=== PATIENT | male | born 1970 | race African-American/Black ===

== ENCOUNTER 2017-06-21 15:55 | Inpatient (IN) | payer SELFPAY ==
[2017-06-21] MEDS ORDERED: ASPIRIN 81 MG TABLET, CHEWABLE PO ONE (16:09)
[2017-06-21] MEDS ORDERED: DILTIAZEM HCL INJ 25 MG/5 ML VIAL IV ONE (16:10)
[2017-06-21] MEDS ORDERED: DILTIAZEM HCL/D5W 125 MG/125 ML RTUINJ IV ONE (16:24)
[2017-06-21] MEDS ORDERED: DILTIAZEM HCL/D5W 125 ML IV PRN (16:26)
[2017-06-21 16:30] LABS: ABSOLUTE BASOPHILS # (AUTO) 0.1 10^3/uL (0.0-0.2); ABSOLUTE EOSINOPHILS # (AUTO) 0.3 10^3/uL (0.0-0.6); ABSOLUTE LYMPHOCYTES (AUTO) 3.1 10^3/uL (0.5-4.7); ABSOLUTE MONOCYTES (AUTO) 0.4 10^3/uL (0.1-1.4); ABSOLUTE NEUT (AUTO) 4.9 10^3/uL (1.7-8.2); BASOPHILS % (AUTO) 1.1 % (0-2); EOSINOPHILS % (AUTO) 2.9 % (0-6); HEMATOCRIT 40.1 % (37.9-51.0); HEMOGLOBIN 14.1 g/dL (13.5-17.0); HGB HCT DIFFERENCE 2.2; MEAN CORPUSCULAR HEMOGLOBIN 29.5 pg (27.0-33.4); MEAN CORPUSCULAR HGB CONC 35.2 g/dL (32.0-36.0); MEAN CORPUSCULAR VOLUME 84 fl (80-97); MONOCYTES % (AUTO) 4.9 % (3-13); RED BLOOD COUNT 4.79 10^6/uL (4.35-5.55); RED CELL DISTRIBUTION WIDTH 13.6 % (11.5-14.0); SEGMENTED NEUTROPHILS % (AUTO) 56.1 % (42-78); WHITE BLOOD COUNT 8.7 10^3/uL (4.0-10.5)
--- NOTE | 2017-06-21 16:31 | ER Document Report ---
ED Cardiac - General Chief Complaint: Shortness Of Breath Stated Complaint: SHORTNESS OF BREATH Time Seen by Provider: 06/21/17 16:09 Mode of Arrival: Ambulatory Information source: Patient TRAVEL OUTSIDE OF THE [place] 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 when he developed shortness of breath with heavy breathing prompting him to come to the nearest emergency room, patient has a history of type 1 diabetes but no history of any cardiac issues, no history of atrial fibrillation, he denies any recent illness or injury, no oxsk-ytg-elpyohr supplements or energy drinks, denies drug use, occasional alcohol user, he does not smoke - Related Data Allergies/Adverse Reactions: codeine Allergy (Verified 06/21/17 16:40) Past Medical History - General Information source: Patient - Social History Smoking Status: Never Smoker Family History: Reviewed & Not Pertinent Patient has suicidal ideation: No Patient has homicidal ideation: No Renal/ Medical History: Denies: Hx Peritoneal Dialysis Review of Systems - Review of Systems Constitutional: No symptoms reported EENT: No symptoms reported Cardiovascular: See HPI Respiratory: See HPI Gastrointestinal: No symptoms reported Genitourinary: No symptoms reported Male Genitourinary: No symptoms reported Musculoskeletal: No symptoms reported Skin: No symptoms reported Hematologic/Lymphatic: No symptoms reported Neurological/Psychological: No symptoms reported -: Yes All other systems reviewed and negative Physical Exam - Vital signs Vitals: Temp Pulse Resp BP Pulse Ox 97.4 F 140 H 23 H 109/72 99 06/21/17 16:03 06/21/17 16:03 06/21/17 16:03 06/21/17 16:03 06/21/17 16:03 Interpretation: Tachycardic - General General appearance: Alert In distress: Moderate - HEENT Head: Normocephalic, Atraumatic Eyes: Normal Eyelashes: Normal Pupils: PERRL Pharynx: Normal Neck: Normal - Respiratory Respiratory status: Tachypnea Chest status: Nontender Breath sounds: Normal Chest palpation: Normal - Cardiovascular Rhythm: Irregularly irregular, Tachycardia Murmur: No - Abdominal Inspection: Normal Distension: No distension Bowel sounds: Normal Tenderness: Nontender Organomegaly: No organomegaly - Back Back: Normal, Nontender - Extremities General upper extremity: Normal inspection General lower extremity: Normal inspection - Neurological Neuro grossly intact: Yes Cognition: Normal Orientation: AAOx4 Krissy Coma Scale Eye Opening: Spontaneous Krissy Coma Scale Verbal: Oriented Krissy Coma Scale Motor: Obeys Commands Sparkman Coma Scale Total: 15 - Psychological Associated symptoms: Normal affect, Normal mood - Skin Skin Temperature: Warm Skin Moisture: Dry Skin Color: Normal Course - Re-evaluation Re-evalutation: 06/21/17 17:09 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 Sanchez, patient's presentation, EKG findings and lab values were discussed, he recommends anticoagulation with Lovenox, admission, stat echocardiogram and he will consult to see patient 06/21/17 17:18 Patient was discussed with hospitalist, Dr. Molina to agrees to admit to the [facility] as an observation for further evaluation and treatment - Vital Signs Vital signs: Temp Pulse Resp BP Pulse Ox 97.4 F 140 H 20 108/71 99 06/21/17 16:03 06/21/17 16:03 06/21/17 17:01 06/21/17 17:01 06/21/17 17:01 - Laboratory Result Diagrams: 06/21/17 16:18 06/21/17 16:18 Laboratory results interpreted by me: 06/21/17 06/21/17 16:18 16:18 Sodium 132.9 L Creatinine 1.46 H Est GFR (Non-Af Amer) 52 L Glucose 395 H Creatine Kinase 1097 H CK-MB (CK-2) 14.60 H - Diagnostic Test Radiology reviewed: Image reviewed, Reports reviewed - EKG Interpretation by Me Rate: Tachycardia Rhythm: A.Fib - Transfer of Care Care transferred to following provider: Dr. Molina Critical Care Note - Critical Care Note Total time excluding time spent on procedures (mins): 60 Comments: Patient arrived to the emergency room tachypneic and tachycardic with EKG findings consistent with atrial fibrillation with RVR, requiring Cardizem bolus and eventual Cardizem drip, as well as observation admission to the hospitalist service for new onset atrial fibrillation Discharge - Discharge Clinical Impression: New onset atrial fibrillation Condition: Stable Disposition: ADMITTED OBSERVATION Admitting Provider: Hospitalist Unit Admitted: IMCU Referrals: STEFFEN KEMP DO [Primary Care Provider] - Follow up as needed
[2017-06-21 16:38] LABS: PROTHROMBIN TIME 11.8 SEC (11.4-15.4)
[2017-06-21 16:47] LABS: ALANINE AMINOTRANSFERASE 57 U/L (21-72); ALBUMIN 3.6 g/dL (3.5-5.0); ALKALINE PHOSPHATASE 121 U/L (38-126); ANION GAP 10 (5-19); ASPARTATE AMINO TRANSFERASE 45 U/L (17-59); BILIRUBIN,DIRECT 0.3 mg/dL (0.0-0.4); BILIRUBIN,TOTAL 0.6 mg/dL (0.2-1.3); BLOOD UREA NITROGEN 18 mg/dL (7-20); CALCIUM 9.2 mg/dL (8.4-10.2); CARBON DIOXIDE 24 mmol/L (22-30); CHLORIDE 99 mmol/L (98-107); CREATINE KINASE 1097 U/L (55-170); CREATININE RESULT 1.46 mg/dL (0.52-1.25); GLUCOSE 395 mg/dL (75-110); POTASSIUM 4.7 mmol/L (3.6-5.0); SODIUM 132.9 mmol/L (137-145); TOTAL PROTEIN 6.6 g/dL (6.3-8.2)
[2017-06-21 16:59] LABS: CREATINE KINASE MB 14.6 ng/mL (<4.55); TROPONIN I 0.017 ng/mL
--- NOTE | 2017-06-21 16:59 | RADIOLOGY REPORT (SQ) ---
EXAM DESCRIPTION: CHEST SINGLE VIEW COMPLETED DATE/TIME: 06/21/2017 4:36 pm REASON FOR STUDY: db COMPARISON: None. EXAM PARAMETERS: NUMBER OF VIEWS: One view. TECHNIQUE: Single frontal radiographic view of the chest acquired. RADIATION DOSE: NA LIMITATIONS: None. FINDINGS: LUNGS AND PLEURA: No opacities, masses or pneumothorax. No pleural effusion. MEDIASTINUM AND HILAR STRUCTURES: No masses. Contour normal. HEART AND VASCULAR STRUCTURES: Heart normal in size. Normal vasculature. BONES: No acute findings. HARDWARE: None in the chest. OTHER: No other significant finding. IMPRESSION: NO ACUTE RADIOGRAPHIC FINDING IN THE CHEST. TECHNICAL DOCUMENTATION: JOB ID: [id number]
[2017-06-21] MEDS ORDERED: NORMAL SALINE 1000 ML 1,000 ML IV PRN (17:00)
[2017-06-21] MEDS ORDERED: ENOXAPARIN SODIUM INJ 150 MG/1 ML DISP.SYRIN SUBCUT ONE (17:10)
[2017-06-21] MEDS ORDERED: ONDANSETRON 4 MG TAB.RAPDIS PO PRN (17:42)
[2017-06-21] MEDS ORDERED: ONDANSETRON HCL INJ/PF 4 MG/2 ML SDV IV PRN (17:42)
[2017-06-21] MEDS ORDERED: ACETAMINOPHEN 325 MG TABLET PO PRN (17:42)
[2017-06-21] MEDS ORDERED: DILTIAZEM HCL/D5W 125 MG/125 ML RTUINJ IV PRN (17:48)
[2017-06-21] MEDS ORDERED: DEXTROSE 40% GEL 15 GM TUBE PO PRN ×2 (17:49)
[2017-06-21] MEDS ORDERED: GLUCAGON,HUMAN RECOMB 1 MG INJ IM PRN (17:49)
[2017-06-21] MEDS ORDERED: DEXTROSE 50%-WATER 25 GM/50 ML DISP.SYRIN IV PRN ×2 (17:49)
--- NOTE | 2017-06-21 17:59 | PDOC H&P ---
History of Present Illness Admission Date/PCP: STEFFEN KEMP DO Patient complains of: Palpitations History of Present Illness: KI GARCIAS is a 46 year old male has a history of diabetes mellitus and had a cardiac catheterization was normal 25 years ago who presents with new onset atrial fibrillation. He was driving from [place] where he lives to [place] and began to experience chest palpitations. He felt slightly short of breath associated with this. He initially thought it was because he drank a cold beverage. The patient continued to have symptoms in spite of drinking a warm drink and decided to come to the emergency room. He was noted to have atrial fibrillation with a rapid ventricular rate. Patient denies having any pain. He denies any dyspnea on exertion. Denies any loss of consciousness. Denies any focal weakness or paresthesias. He denies ever having history of atrial fibrillation. Patient is diabetic and reports his blood sugars have been slightly elevated over the last several days. He denies any fevers or chills or cough. He is noted to have slightly elevated creatinine but has no history of renal failure. Past Medical History Cardiac Medical History: Reports: Hyperlipidema, Hypertension Pulmonary Medical History: Reports: None EENT Medical History: Reports: None Neurological Medical History: Reports: None Endocrine Medical History: Reports: Diabetes Mellitus Type 2 Renal/ Medical History: Reports: None Malignancy Medical History: Reports: None GI Medical History: Reports: Gastroesophageal Reflux Disease Musculoskeltal Medical History: Reports: None Skin Medical History: Reports: None Psychiatric Medical History: Reports: None Traumatic Medical History: Reports: None Hematology: Reports: None Infectious Medical History: Reports: None Past Surgical History Past Surgical History: Reports: Cardiac Catheterization - 25 years ago and was normal by the patient report Social History Smoking Status: Never Smoker Frequency of Alcohol Use: None Hx Recreational Drug Use: No Drugs: None Hx Prescription Drug Abuse: No - Advance Directive Resuscitation Status: Full Code Family History Family History: Father at age 50 from complications of alcohol use. Mother at age 32 from aneurysm. Parental Family History Reviewed: Yes Children Family History Reviewed: No Sibling(s) Family History Reviewed.: No Medication/Allergy Allergies/Adverse Reactions: codeine Allergy (Verified 06/21/17 16:40) Review of Systems Constitutional: ABSENT: chills, fever(s), headache(s), weight gain, weight loss Eyes: ABSENT: visual disturbances Ears: ABSENT: hearing changes Cardiovascular: PRESENT: as per HPI Respiratory: ABSENT: cough, hemoptysis Gastrointestinal: ABSENT: abdominal pain, constipation, diarrhea, hematemesis, hematochezia, nausea, vomiting Genitourinary: ABSENT: dysuria, hematuria Musculoskeletal: ABSENT: joint swelling Integumentary: ABSENT: rash, wounds Neurological: ABSENT: abnormal gait, abnormal speech, confusion, dizziness, focal weakness, syncope Endocrine: ABSENT: cold intolerance, heat intolerance, polydipsia, polyuria Hematologic/Lymphatic: ABSENT: easy bleeding, easy bruising Physical Exam Vital Signs: Temp Pulse Resp BP Pulse Ox 97.4 F 140 H 19 139/75 H 99 06/21/17 16:03 06/21/17 16:03 06/21/17 17:31 06/21/17 17:31 06/21/17 17:31 Intake & Output 06/20/17 06/21/17 06/22/17 06:59 06:59 06:59 Weight 130.4 kg General appearance: PRESENT: no acute distress, obese Head exam: PRESENT: atraumatic, normocephalic Eye exam: PRESENT: conjunctiva pink, EOMI, PERRLA. ABSENT: scleral icterus Ear exam: PRESENT: normal external ear exam Mouth exam: PRESENT: moist, tongue midline Neck exam: ABSENT: carotid bruit, JVD, lymphadenopathy, thyromegaly Respiratory exam: PRESENT: clear to auscultation albaro. ABSENT: rales, rhonchi, wheezes Cardiovascular exam: PRESENT: irregular rhythm, tachycardia. ABSENT: diastolic murmur, rubs, systolic murmur Pulses: PRESENT: normal dorsalis pedis pul Vascular exam: PRESENT: normal capillary refill GI/Abdominal exam: PRESENT: normal bowel sounds, soft. ABSENT: distended, guarding, mass, organolmegaly, rebound, tenderness Rectal exam: PRESENT: deferred Extremities exam: PRESENT: full ROM. ABSENT: calf tenderness, clubbing, pedal edema Neurological exam: PRESENT: alert, awake, oriented to person, oriented to place , oriented to time, oriented to situation, CN II-XII grossly intact. ABSENT: motor sensory deficit Psychiatric exam: PRESENT: appropriate affect, normal mood Skin exam: PRESENT: dry, intact, warm. ABSENT: cyanosis, rash Results Laboratory Results: 06/21/17 16:18 06/21/17 16:18 06/21/17 06/21/17 06/21/17 16:18 16:18 16:18 WBC 8.7 RBC 4.79 Hgb 14.1 Hct 40.1 MCV 84 MCH 29.5 MCHC 35.2 RDW 13.6 Plt Count 235 Seg Neutrophils % 56.1 Lymphocytes % 35.0 Monocytes % 4.9 Eosinophils % 2.9 Basophils % 1.1 Absolute Neutrophils 4.9 Absolute Lymphocytes 3.1 Absolute Monocytes 0.4 Absolute Eosinophils 0.3 Absolute Basophils 0.1 Sodium 132.9 L Potassium 4.7 Chloride 99 Carbon Dioxide 24 Anion Gap 10 BUN 18 Creatinine 1.46 H Est GFR ( Amer) > 60 Est GFR (Non-Af Amer) 52 L Glucose 395 H Calcium 9.2 Total Bilirubin 0.6 AST 45 ALT 57 Alkaline Phosphatase 121 Total Protein 6.6 Albumin 3.6 TSH 2.85 06/21/17 06/21/17 16:18 16:18 Creatine Kinase 1097 H CK-MB (CK-2) 14.60 H Troponin I 0.017 Impressions: Chest X-Ray 06/21/17 16:09 IMPRESSION: NO ACUTE RADIOGRAPHIC FINDING IN THE CHEST. Assessment & Plan - Diagnosis (1) New onset atrial fibrillation Is this a current diagnosis for this admission?: YesPlan: Patient has no previous cardiac history. We will continue with the diltiazem drip for rate control. Will consult cardiology and obtain echocardiogram. Will check serial cardiac enzymes to make certain he has not had an acute cardiac event. (2) Acute renal failure Is this a current diagnosis for this admission?: YesPlan: Patient has no previous history of renal disease. He has been on ramipril as an outpatient. We will stop that and give IV fluids overnight and recheck his creatinine in the morning. (3) Diabetes mellitus Is this a current diagnosis for this admission?: YesPlan: We will check fingerstick blood sugars and cover with sliding scale insulin. (4) Hyperlipidemia Is this a current diagnosis for this admission?: YesPlan: He has been on simvastatin as an outpatient. - Time Time Spent: 50 to 70 Minutes - Plan Summary Plan Summary: Admit as an observation as I anticipate this require less than a 2 midnight hospital stay.
--- NOTE | 2017-06-21 18:42 | PDOC CONSULTATION ---
Consultation Consult Date: 06/21/17 Attending physician:: JAMIE HENDERSON Consult reason:: Atrial fibrillation, abnormal cardiac enzymes History of Present Illness Admission Date/PCP: 06/21/17 17:43 STEFFEN KEMP DO Patient complains of: Chest discomfort and shortness of breath History of Present Illness: KI GARCIAS is a 46 year old male has a history of diabetes mellitus and had a cardiac catheterization was normal 25 years ago who presents with new onset atrial fibrillation. He was driving from [place] where he lives to [place] and began to experience chest palpitations. He felt slightly short of breath associated with this. He initially thought it was because he drank a cold beverage. The patient continued to have symptoms in spite of drinking a warm drink and decided to come to the emergency room. He was noted to have atrial fibrillation with a rapid ventricular rate. Patient denies having any pain. He denies any dyspnea on exertion. Denies any loss of consciousness. Denies any focal weakness or paresthesias. He denies ever having history of atrial fibrillation. Patient is diabetic and reports his blood sugars have been slightly elevated over the last several days. He denies any fevers or chills or cough. He is noted to have slightly elevated creatinine but has no history of renal failure. On questioning he admitted to having some chest tightness. He was noted to have abnormal total CK and CK-MB but troponin I WNL. Patient was also noted to have some ST segment depression. Patient being admitted. Past Medical History Cardiac Medical History: Reports: Hyperlipidema, Hypertension Pulmonary Medical History: Reports: None EENT Medical History: Reports: None Neurological Medical History: Reports: None Endocrine Medical History: Reports: Diabetes Mellitus Type 2 Renal/ Medical History: Reports: None Malignancy Medical History: Reports: None GI Medical History: Reports: Gastroesophageal Reflux Disease Musculoskeltal Medical History: Reports: None Skin Medical History: Reports: None Psychiatric Medical History: Reports: None Traumatic Medical History: Reports: None Hematology: Reports: None Infectious Medical History: Reports: None Past Surgical History Past Surgical History: Reports: Cardiac Catheterization - 25 years ago and was normal by the patient report Social History Information Source: Patient Smoking Status: Never Smoker Frequency of Alcohol Use: None Hx Recreational Drug Use: No Drugs: None Hx Prescription Drug Abuse: No - Advance Directive Resuscitation Status: Full Code Family History Family History: Reviewed & Not Pertinent Parental Family History Reviewed: Yes Children Family History Reviewed: Yes Sibling(s) Family History Reviewed.: Yes - Negative for premature coronary artery disease or sudden cardiac in the family amongst first degree relatives. Medication/Allergy Allergies/Adverse Reactions: codeine Allergy (Verified 06/21/17 16:40) Review of Systems Review of Systems: Please see history of present illness and past medical history as wall. Constitutional: No fever or chills reported. Head : No recent chronic headaches, recent head injury. Eyes: No recent eye pain, diplopia, redness, discharge, acute visual changes. Ears: No recent chronic ear pain, acute hearing loss, ear discharge. Oral cavity: No recent ulcerations, bleeding, oral cavity discomfort. Neck: No recent acute neck pain reported. Hematologic: No recent easy bruising or bleeding or hematologic malignancy reported. Lymphatic: No recent lymphatic malignancy, chronic lymphadenopathy reported yet Cardiovascular system review: See history of present illness. Respiratory system review: No recent chronic cough, hemoptysis, blood clots in the lungs reported. Mild Shortness of breath on exertion Gastrointestinal system review: Negative for any recent acute or chronic abdominal pain, hematemesis, melena, recent change in bowel habits. Genitourinary system review: No recent acute or chronic hematuria, flank pain, UTI etc. reported. Skin system review: Negative for any recent abnormal bruising, no rash, no pruritus reported. Neurologic: No prior history of strokes, mini strokes, seizure disorder. Psychologic: No history of major psychosis or major depression reported. Musculoskeletal: Minor aches and pains reported. No acute joint swelling reported. Endocrine: No recent polyuria, polydipsia, recent heat or cold intolerance. Physical Exam Vital Signs: Temp Pulse Resp BP Pulse Ox 97.4 F 140 H 17 118/96 H 99 06/21/17 16:03 06/21/17 16:03 06/21/17 18:01 06/21/17 18:01 06/21/17 18:01 Exam: GENERAL: well-nourished and in no acute distress. Alert and oriented x3 HEAD: Atraumatic, normocephalic. EYES: Pupils equal round and reactive to light, extraocular movements intact, sclera anicteric, conjunctiva are normal. ENT: TMs normal, nares patent, oropharynx clear without exudates. Moist mucous membranes. No oral ulcerations or bleeding gums noted NECK: supple without lymphadenopathy. Trachea is central. No cervical or axillary lymphadenopathy noted. Carotids are 2+, JVD WNL LUNGS: Respiration seems nonlabored, no significant accessory muscle action noted. Breath sounds clear to auscultation bilaterally and equal noted. No wheezes rales or rhonchi noted. No significant dullness noted on percussion. CHEST: Palpation of the chest wall shows no significant chest wall tenderness. No other significant abnormalities noted. HEART: [place] [employer], No PSH, 1/6 RADHA aortic area, 1/6 sofia systolic murmur mitral area, no rubs, no gallops. ABDOMEN: Soft, no significant tenderness appreciated, normoactive bowel sounds. No guarding, no rebound. No rigidity noted . No masses appreciated. EXTREMITIES: Pedal pulses are 1-2+, no calf tenderness noted. No clubbing or cyanosis.trace to 1+ pedal edema noted NEUROLOGICAL: Focused neurological exam showed no significant neurologic deficit. Normal speech, no focal weakness appreciated. PSYCH: Normal mood, normal affect. Judgment and insight within normal limits. SKIN: No significant ecchymosis, rash, ulcerations or signs of pruritus noted. MUSCULOSKELETAL EXAM: No significant joint swelling noted. Results EKG Comments: Atrial fibrillation with rapid ventricular response. Increased QRS voltage and ST-T changes consistent with LVH. Impressions: Chest X-Ray 06/21/17 16:09 IMPRESSION: NO ACUTE RADIOGRAPHIC FINDING IN THE CHEST. Assessment & Plan - Diagnosis (1) New onset atrial fibrillation Is this a current diagnosis for this admission?: Yes (2) Abnormal cardiac enzyme level Is this a current diagnosis for this admission?: Yes (3) Obesity (BMI 30.0-34.9) Is this a current diagnosis for this admission?: Yes (4) Diabetes mellitus Qualifiers: Diabetes mellitus type: type 2 Diabetes mellitus complication status: without complication Is this a current diagnosis for this admission?: Yes (5) Hyperlipidemia Is this a current diagnosis for this admission?: Yes (6) Chest discomfort Is this a current diagnosis for this admission?: Yes - Notes Notes: Atrial fibrillation with rapid ventricular response: New onset. Could have been precipitated by vagal stimulation by drinking cold water but could well be related to other causes. At this point agree with rate control. If patient does not convert spontaneously with will consider chemical cardioversion tomorrow and/or electrical cardioversion can be performed on Friday. Continue with full dose anticoagulation. Chest discomfort: Precipitated by atrial fibrillation with rapid ventricular response. Patient will benefit from ischemia workup at a later date. Diabetes: Continue good control of blood sugar. Dyslipidemia: Continue statin therapy. Obesity: Discussed that he will benefit from evaluation with a sleep study to rule out sleep apnea as atrial fibrillation is associated with sleep apnea. - Time Time Spent: 50 to 70 Minutes - CODE STATUS was discussed, patient remains full code. Surrogate decision-maker unchanged. Multiple medical problems were addressed. More than 50% of the time spent coordinating care, discussing management plans with involved caregivers. Management plans discussed with involved personnels. Medical decision making was of moderate to high complexity , patient's has multiple comorbidities. Medications reviewed and adjusted accordingly: Yes
[2017-06-21] MEDS: FAMOTIDINE 20 MG TABLET PO SCH (21:49)
[2017-06-21] MEDS: INSULIN LISPRO 100 UNIT/ML 3 ML VIAL SUBCUT PRN (22:09)
[2017-06-21 23:03] LABS: CREATINE KINASE MB 10.2 ng/mL (<4.55)
[2017-06-21 23:06] LABS: TROPONIN I 0.132 ng/mL
[2017-06-21] MEDS ORDERED: ATORVASTATIN CALCIUM 80 MG TABLET PO ONE (23:12)
--- NOTE | 2017-06-21 23:43 | EKG REPORT ---
SEVERITY:- ABNORMAL ECG - ATRIAL FIBRILLATION, V-RATE 66-140 BORDERLINE PROLONGED QT INTERVAL LVH NONSPECIFIC ST-T CHANGES- INFERIOR LEADS : Confirmed by: Jack Strong MD 21-Jun-2017 23:42:27
--- NOTE | 2017-06-21 23:43 | EKG REPORT ---
SEVERITY:- ABNORMAL ECG - ATRIAL FIBRILLATION, V-RATE 71-132 NONSPECIFIC T ABNORMALITIES, INFERIOR LEADS : Confirmed by: Jack Strong MD 21-Jun-2017 23:41:48
[2017-06-22] MEDS ORDERED: METOPROLOL TARTRATE PF/INJ 5 MG/5 ML SDV IV PRN (00:19)
[2017-06-22 05:14] LABS: HEMATOCRIT 37.1 % (37.9-51.0); MEAN CORPUSCULAR VOLUME 84 fl (80-97); RED BLOOD COUNT 4.41 10^6/uL (4.35-5.55); RED CELL DISTRIBUTION WIDTH 13.9 % (11.5-14.0); WHITE BLOOD COUNT 7.7 10^3/uL (4.0-10.5)
[2017-06-22 05:28] LABS: TROPONIN I 0.277 ng/mL
[2017-06-22 06:24] LABS: CREATINE KINASE MB 7.22 ng/mL (<4.55)
[2017-06-22 07:45] LABS: ANION GAP 6 (5-19); BLOOD UREA NITROGEN 18 mg/dL (7-20); CALCIUM 8.5 mg/dL (8.4-10.2); CARBON DIOXIDE 21 mmol/L (22-30); CHLORIDE 106 mmol/L (98-107); CREATINE KINASE 678 U/L (55-170); CREATININE RESULT 1.28 mg/dL (0.52-1.25); GLUCOSE 348 mg/dL (75-110); MAGNESIUM 1.8 mg/dL (1.6-2.3); POTASSIUM 4.7 mmol/L (3.6-5.0); SODIUM 133.2 mmol/L (137-145)
--- NOTE | 2017-06-22 08:07 | EKG REPORT ---
SEVERITY:- ABNORMAL ECG - ATRIAL FIBRILLATION, V-RATE 77-[address]-T CHANGES INFEROLATERAL LEADS : Confirmed by: Jack Strong MD 22-Jun-2017 08:06:43
[2017-06-22] MEDS: ASPIRIN 81 MG TABLET, ENT COATED PO SCH (09:18)
[2017-06-22] MEDS: FAMOTIDINE 20 MG TABLET PO SCH ×2 (09:18→22:24)
[2017-06-22] MEDS: METOPROLOL SUCCINATE 25 MG TAB.SR.24H PO SCH ×2 (09:19→22:24)
[2017-06-22] MEDS: NORMAL SALINE 1000 ML 1,000 ML IV PRN ×2 (09:25→15:55)
--- NOTE | 2017-06-22 09:44 | PDOC PROGRESS REPORT ---
Subjective Progress Note for:: 06/22/17 Subjective:: Denies any complaints. Still in A. fib. Physical Exam Vital Signs: Temp Pulse Resp BP Pulse Ox 98.3 F 92 20 110/64 98 06/22/17 03:54 06/22/17 07:00 06/22/17 03:54 06/22/17 06:01 06/22/17 03:54 Intake & Output 06/21/17 06/22/17 06/23/17 06:59 06:59 06:59 Intake Total 2000 Balance 1999 Weight 131 kg General appearance: PRESENT: no acute distress Eye exam: PRESENT: conjunctiva pink. ABSENT: scleral icterus Mouth exam: PRESENT: moist, tongue midline Neck exam: ABSENT: JVD Respiratory exam: PRESENT: clear to auscultation albaro. ABSENT: rales, rhonchi, wheezes Cardiovascular exam: PRESENT: irregular rhythm. ABSENT: diastolic murmur, rubs , systolic murmur GI/Abdominal exam: PRESENT: normal bowel sounds, soft. ABSENT: distended, guarding, mass, organolmegaly, rebound, tenderness Extremities exam: ABSENT: calf tenderness, clubbing, pedal edema Neurological exam: PRESENT: alert, awake, oriented to person, oriented to place , oriented to time, oriented to situation, CN II-XII grossly intact. ABSENT: motor sensory deficit Psychiatric exam: PRESENT: appropriate affect Skin exam: PRESENT: dry, intact, warm. ABSENT: cyanosis, rash Results Laboratory Results: 06/22/17 04:20 06/22/17 07:08 06/22/17 06/22/17 06/22/17 04:20 04:20 07:08 WBC 7.7 RBC 4.41 Hgb 13.8 Hct 37.1 L MCV 84 MCH 31.3 MCHC 37.1 H RDW 13.9 Plt Count 203 Sodium Cancelled 133.2 L Potassium Cancelled 4.7 Chloride Cancelled 106 Carbon Dioxide Cancelled 21 L Anion Gap Cancelled 6 BUN Cancelled 18 Creatinine Cancelled 1.28 H Est GFR ( Amer) Cancelled > 60 Est GFR (Non-Af Amer) Cancelled > 60 Glucose Cancelled 348 H Calcium Cancelled 8.5 Magnesium Cancelled 1.8 06/21/17 06/21/17 06/22/17 22:25 22:25 04:20 Creatine Kinase 917 H CK-MB (CK-2) 10.20 H 7.22 H Troponin I 0.132 0.277 06/22/17 06/22/17 04:20 07:08 Creatine Kinase Cancelled 678 H CK-MB (CK-2) Troponin I Impressions: Chest X-Ray 06/21/17 16:09 IMPRESSION: NO ACUTE RADIOGRAPHIC FINDING IN THE CHEST. Assessment & Plan - Diagnosis (1) New onset atrial fibrillation Is this a current diagnosis for this admission?: YesPlan: Patient has no previous cardiac history. Patient is still in atrial fibrillation on a Cardizem drip. He did have troponins that were elevated. Is not clear whether he had a non-STEMI or whether this is just related to atrial fibrillation with rapid ventricular rate. Cardiology has been consulted and an echocardiogram has been done. will defer to cardiology in regards to the next step. (2) Acute renal failure Is this a current diagnosis for this admission?: YesPlan: Patient has no previous history of renal disease. He has been on ramipril as an outpatient. Patient's creatinine improved with IV fluids. Patient should avoid JANIE inhibitors. (3) Diabetes mellitus Qualifiers: Diabetes mellitus type: type 2 Diabetes mellitus complication status: without complication Is this a current diagnosis for this admission?: YesPlan: We will check fingerstick blood sugars and cover with sliding scale insulin. (4) Hyperlipidemia Is this a current diagnosis for this admission?: YesPlan: He has been on simvastatin as an outpatient. - Time Time Spent with patient: 25-34 minutes - Plan Summary Plan Summary: We will change to an inpatient as he will require further care for his atrial fibrillation.
[2017-06-22] MEDS ORDERED: ENOXAPARIN SODIUM INJ 40 MG/0.4 ML DISP.SYRIN SUBCUT SCH (10:00)
[2017-06-22 11:28] LABS: CREATINE KINASE MB 6.49 ng/mL (<4.55); TROPONIN I 0.213 ng/mL
[2017-06-22 11:35] LABS: HEMOGLOBIN 12.5 g/dL (13.5-17.0); HGB HCT DIFFERENCE 0.4; MEAN CORPUSCULAR HEMOGLOBIN 28.3 pg (27.0-33.4)
[2017-06-22 11:36] LABS: MEAN CORPUSCULAR HGB CONC 33.7 g/dL (32.0-36.0)
[2017-06-22 11:55] LABS: Direct HDL 23 mg/dL (>40)
[2017-06-22 12:05] LABS: DIRECT LDL 36 mg/dL (<100)
[2017-06-22 12:06] LABS: TRIGLYCERIDES 1422 mg/dL (<150)
[2017-06-22] MEDS: ENOXAPARIN SODIUM INJ 150 MG/1 ML DISP.SYRIN SUBCUT SCH ×2 (13:11→22:21)
[2017-06-22] MEDS ORDERED: FENOFIBRATE NANOCRYSTALLIZED 48 MG TABLET PO ONE (14:00)
--- NOTE | 2017-06-22 14:54 | XCELERA REPORT ---
[address] [address] Transthoracic Echocardiogram Report Name: KI GARCIAS Age: 46 yrs Gender: Male : 1970 Patient Status: Inpatient Patient Location: \S\[facility]\S\A Study Date: 06/21/2017 06:41 PM Height: 76 in Weight: 287 lb BSA: 2.6 m2 Procedure: A complete two-dimensional transthoracic echocardiogram was performed (2D, M-mode, spectral and color flow Doppler). The study was technically adequate with some images being suboptimal in quality. Reason For Study: new onset afib Ordering Physician: BRAD AGUSTIN Performed By: Danny Quiros Interpretation Summary The left ventricular ejection fraction is normal. There is moderate concentric left ventricular hypertrophy. The left ventricle is grossly normal size. Wall motion cannot be accurately commented on, but no definite regional wall motion abnormalities noted. LV diastolic function could not be adequately assessed due to atrial fibrilation. The right ventricle appears to be hypertrophied The right ventricle is grossly normal size. The right ventricular systolic function is normal. The right atrium is normal in size The left atrium is mildly dilated. There is a mild amount of mitral regurgitation There is no mitral valve stenosis. No aortic regurgitation is present. There is no aortic valve stenosis There is a mild amount of tricuspid regurgitation There is mild pulmonary hypertension by echo Right ventricular systolic pressure is estimated to be elevated at 30- 40mmHg. The aortic root is not well visualized but is probably normal size. The inferior vena cava appeared normal and decreased > 50% with respiration (RAP 5-10 mmHg) Minimal pericardial effusion. MMode/2D Measurements \T\ Calculations RVDd: 2.7 cm LVIDd: 4.1 cm FS: 35.0 % Ao root diam: 3.8 cm IVSd: 2.0 cm LVIDs: 2.7 cm EDV(Teich): 73.4 ml LVPWd: 1.9 cm ESV(Teich): 25.9 ml Ao root area: 11.2 cm2 EF(Teich): 64.7 % LA dimension: 3.6 cm Doppler Measurements \T\ Calculations MV E max heaven: MV P1/2t max heaven: Ao V2 max: LV V1 max P.8 cm/sec 81.4 cm/sec 103.8 cm/sec 2.3 mmHg MV P1/2t: 48.2 msec Ao max PG: LV V1 max: 4.3 mmHg 75.5 cm/sec MVA(P1/2t): 4.6 cm2 MV dec slope: 494.6 cm/sec2 PA V2 max: TR max heaven: RAP systole: 83.9 cm/sec 240.8 cm/sec 10.0 mmHg PA max PG: TR max P.6 mmHg 2.8 mmHg RVSP(TR): 34.6 mmHg Left Ventricle The left ventricle is grossly normal size. There is moderate concentric left ventricular hypertrophy. The left ventricular ejection fraction is normal. LV diastolic function could not be adequately assessed due to atrial fibrilation. Wall motion cannot be accurately commented on, but no definite regional wall motion abnormalities noted. Right Ventricle The right ventricle is grossly normal size. The right ventricle appears to be hypertrophied. The right ventricular systolic function is normal. Atria The right atrium is normal in size. The left atrium is mildly dilated. Interarterial septum not well visualized and not well dopplered. Cannot comment on ASD/PFO presence. Mitral Valve The mitral valve is grossly normal. There is no mitral valve stenosis. There is a mild amount of mitral regurgitation. Aortic Valve The aortic valve is grossly normal. There is no aortic valve stenosis. No aortic regurgitation is present. Tricuspid Valve The tricuspid valve is not well visualized, but is grossly normal. There is no tricuspid stenosis. There is a mild amount of tricuspid regurgitation. There is mild pulmonary hypertension by echo. Right ventricular systolic pressure is estimated to be elevated at 30-40mmHg. Pulmonic Valve The pulmonic valve is not well seen, but is grossly normal. Great Vessels The aortic root is not well visualized but is probably normal size. The inferior vena cava appeared normal and decreased > 50% with respiration (RAP 5-10 mmHg). Effusions Minimal pericardial effusion. : BRAD AGUSTIN > Kayleigh Sanchez
--- NOTE | 2017-06-22 17:03 | EKG REPORT ---
SEVERITY:- ABNORMAL ECG - SINUS RHYTHM MULTIPLE ATRIAL PREMATURE COMPLEXES FIRST DEGREE AV BLOCK PROBABLE LEFT ATRIAL ABNORMALITY NONSPECIFIC T ABNORMALITIES, INFEROLATERAL LEADS : Confirmed by: Jack Strong MD 22-Jun-2017 17:02:43
--- NOTE | 2017-06-22 17:38 | PDOC PROGRESS REPORT ---
Subjective Progress Note for:: 06/22/17 Subjective:: Patient seems to be doing better with gradual improvement. Pt is denying any chest arm or neck discomfort. Patient denying any PND, orthopnea. Patient denied any sustained palpitations, dizziness, syncope, near syncope. Patient denying any fever chills. Patient denying any other significant discomfort. Patient is maintaining sinus rhythm, having converted to sinus rhythm at around 10:30 AM today. Patient's cardiac enzymes has come back in the suggestive range. 2D echo results shows moderate LVH but without any other significant valvular abnormalities. Review of systems: Rest review of systems negative. Medications: Medications have been reviewed. I had the opportunity to talk with patient's today. Patient does have history of loud snoring Physical Exam Vital Signs: Temp Pulse Resp BP Pulse Ox 98.2 F 69 18 138/66 H 100 06/22/17 07:37 06/22/17 14:00 06/22/17 07:37 06/22/17 12:00 06/22/17 07:37 Intake & Output 06/21/17 06/22/17 06/23/17 06:59 06:59 06:59 Intake Total 1550 Balance 1550 Exam: GENERAL: well-nourished and in no acute distress. Alert and oriented x3 HEAD: Atraumatic, normocephalic. EYES: Pupils equal round and reactive to light, extraocular movements intact, sclera anicteric, conjunctiva are normal. ENT: TMs normal, nares patent, oropharynx clear without exudates. Moist mucous membranes. No oral ulcerations or bleeding gums noted NECK: supple without lymphadenopathy. Trachea is central. No cervical or axillary lymphadenopathy noted. Carotids are 2+, JVD WNL LUNGS: Respiration seems nonlabored, no significant accessory muscle action noted. Breath sounds clear to auscultation bilaterally and equal noted. No wheezes rales or rhonchi noted. No significant dullness noted on percussion. CHEST: Palpation of the chest wall shows no significant chest wall tenderness. No other significant abnormalities noted. 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 ABDOMEN: Soft, no significant tenderness appreciated, normoactive bowel sounds. No guarding, no rebound. No rigidity noted . No masses appreciated. EXTREMITIES: Pedal pulses are 1-2+, no calf tenderness noted. No clubbing or cyanosis.trace to 1+ pedal edema noted NEUROLOGICAL: Focused neurological exam showed no significant neurologic deficit. Normal speech, no focal weakness appreciated. PSYCH: Normal mood, normal affect. Judgment and insight within normal limits. SKIN: No significant ecchymosis, rash, ulcerations or signs of pruritus noted. MUSCULOSKELETAL EXAM: No significant joint swelling noted. Results Laboratory Results: 06/22/17 10:31 Triglycerides 1422 H Cholesterol 246.40 H LDL Cholesterol Direct 36 VLDL Cholesterol UNABLE TO CALCULATE HDL Cholesterol 23 L 06/22/17 06/22/17 10:31 10:31 Creatine Kinase 574 H CK-MB (CK-2) 6.49 H Troponin I 0.213 EKG Comments: Telemetry strips were reviewed. Initially patient noted to be in atrial fibrillation but subsequently patient in sinus rhythm. Impressions: Chest X-Ray 06/21/17 16:09 IMPRESSION: NO ACUTE RADIOGRAPHIC FINDING IN THE CHEST. Assessment & Plan - Diagnosis (1) New onset atrial fibrillation Is this a current diagnosis for this admission?: Yes (2) Abnormal cardiac enzyme level Is this a current diagnosis for this admission?: Yes (3) Obesity (BMI 30.0-34.9) Is this a current diagnosis for this admission?: Yes (4) Diabetes mellitus Qualifiers: Diabetes mellitus type: type 2 Diabetes mellitus complication status: without complication Is this a current diagnosis for this admission?: Yes (5) Hyperlipidemia Is this a current diagnosis for this admission?: Yes (6) Chest discomfort Is this a current diagnosis for this admission?: Yes - Notes Notes: Atrial fibrillation with rapid ventricular response: New onset. Could have been precipitated by vagal stimulation by drinking cold water but could well be related to other causes. At this point agree with rate control. Patient did convert spontaneously to sinus rhythm. Would recommend regular dose aspirin on discharge. Chest discomfort: Precipitated by atrial fibrillation with rapid ventricular response. Patient will benefit from ischemia workup. Since patient's cardiac enzymes came back suggestive, feel that an inpatient nuclear stress test is indicated. This was discussed with the patient and is scheduled for tomorrow. Diabetes: Continue good control of blood sugar. Dyslipidemia: Continue statin therapy. Patient also has severe elevation of triglycerides. Have therefore also placed patient on fenofibrate. Obesity: Discussed that he will benefit from evaluation with a sleep study to rule out sleep apnea as atrial fibrillation is associated with sleep apnea. Sleep disorder: Patient gives history of loud snoring. Discussed association of atrial fibrillation and LVH with sleep apnea syndrome. Patient encouraged to schedule a sleep study as an outpatient. - Time Time with patient: Greater than 35 minutes - Nuclear stress test procedure, risk benefits discussed. Sleep study and rationale discussed. Significant time spent in discussing these tests. Also in the morning cardioversion was raised but patient subsequently converted spontaneously to sinus rhythm. Patient being placed on antilipid medication. Also placed on antiarrhythmics. CODE STATUS was discussed, patient remains full code. Surrogate decision-maker patient's . Multiple medical problems were addressed. More than 50% of the time spent coordinating care, discussing management plans with involved caregivers. Management plans discussed with involved personnels. Medical decision making was of moderate to high complexity, patient's has multiple comorbidities. Medications reviewed and adjusted accordingly: Yes
[2017-06-22] MEDS: DRONEDARONE HYDROCHLORIDE 400 MG TABLET PO SCH (18:06)
[2017-06-22] MEDS ORDERED: ATORVASTATIN CALCIUM 10 MG TABLET PO SCH (22:00)
[2017-06-23] MEDS: DRONEDARONE HYDROCHLORIDE 400 MG TABLET PO SCH (05:12)
[2017-06-23 05:17] LABS: HEMATOCRIT 35.6 % (37.9-51.0); HEMOGLOBIN 13.1 g/dL (13.5-17.0); HGB HCT DIFFERENCE 3.7; MEAN CORPUSCULAR HEMOGLOBIN 30.7 pg (27.0-33.4); MEAN CORPUSCULAR HGB CONC 36.7 g/dL (32.0-36.0); MEAN CORPUSCULAR VOLUME 84 fl (80-97); RED BLOOD COUNT 4.26 10^6/uL (4.35-5.55); RED CELL DISTRIBUTION WIDTH 13.8 % (11.5-14.0); WHITE BLOOD COUNT 8.2 10^3/uL (4.0-10.5)
[2017-06-23 05:48] LABS: ANION GAP 6 (5-19); BLOOD UREA NITROGEN 19 mg/dL (7-20); CALCIUM 8.2 mg/dL (8.4-10.2); CARBON DIOXIDE 20 mmol/L (22-30); CHLORIDE 108 mmol/L (98-107); CREATININE RESULT 1.26 mg/dL (0.52-1.25); GLUCOSE 190 mg/dL (75-110); POTASSIUM 4.3 mmol/L (3.6-5.0); SODIUM 134.4 mmol/L (137-145)
--- NOTE | 2017-06-23 07:53 | EKG REPORT ---
SEVERITY:- ABNORMAL ECG - SINUS RHYTHM MULTIPLE ATRIAL PREMATURE COMPLEXES PROBABLE LEFT ATRIAL ABNORMALITY CONSIDER ANTEROSEPTAL INFARCT BORDERLINE T WAVE ABNORMALITIES : Confirmed by: Kayleigh Sanchez 23-Jun-2017 07:52:39
--- NOTE | 2017-06-23 07:54 | EKG REPORT ---
SEVERITY:- ABNORMAL ECG - ATRIAL FIBRILLATION, V-RATE 78-153 REPOL ABNRM SUGGESTS ISCHEMIA, ANT-LAT LEADS : Confirmed by: Kayleigh Sanchez 23-Jun-2017 07:54:17
[2017-06-23] MEDS ORDERED: ONDANSETRON 4 MG TAB.RAPDIS PO PRN (08:34)
[2017-06-23] MEDS ORDERED: ONDANSETRON HCL INJ/PF 4 MG/2 ML SDV IV PRN (08:34)
[2017-06-23] MEDS ORDERED: LOSARTAN POTASSIUM 50 MG TABLET PO ONE (08:45)
[2017-06-23] MEDS ORDERED: METOPROLOL TARTRATE 50 MG TABLET PO ONE (08:45)
[2017-06-23] MEDS ORDERED: AMLODIPINE BESYLATE 5 MG TABLET PO ONE (08:45)
[2017-06-23] MEDS ORDERED: FENOFIBRATE NANOCRYSTALLIZED 48 MG TABLET PO SCH (10:00)
[2017-06-23] MEDS: METOPROLOL SUCCINATE 25 MG TAB.SR.24H PO SCH (10:25)
[2017-06-23] MEDS: FAMOTIDINE 20 MG TABLET PO SCH (10:55)
[2017-06-23] MEDS: ASPIRIN 81 MG TABLET, ENT COATED PO SCH (10:55)
[2017-06-23] MEDS: ENOXAPARIN SODIUM INJ 150 MG/1 ML DISP.SYRIN SUBCUT SCH (10:58)
[2017-06-23] MEDS: INSULIN LISPRO 100 UNIT/ML 3 ML VIAL SUBCUT PRN (12:27)
--- NOTE | 2017-06-23 13:20 | DRAGON STRESS TEST REPORT ---
INTRAVENOUS LEXISCAN CARDIOLITE STRESS TEST USING SINGLE PHOTON EMMISION COMPUTERIZED TOMOGRAPHIC. DATE OF PROCEDURE: June 23, 2017 INDICATION : Chest pain, paroxysmal atrial fibrillation CARDIAC RISK FACTORS: Diabetes, hypertension, dyslipidemia RESTING EKG: Sinus rhythm with borderline minor nonspecific ST-T wave changes STRESS EKG: No significant changes noted with LexiScan bolus REASON FOR TERMINATION: Protocol. PROCEDURE REPORT: Baseline heart rate 67 beats per minute with blood pressure of 134/88. Patient had no significant complaints. Heart rate at 2 minutes post bolus 70 with a blood pressure of 127/89. 3 minutes post bolus heart rate 74 with blood pressure of 140/93. No significant EKG changes were noted. Patient had no significant complaints during the procedure or postprocedure. Patient injected with Aminophyllin 75 mg at 3 minutes or later after Lexiscan bolus. CONCLUSIONS: Normal EKG and hemodynamic response to IV LexiScan. NUCLEAR DATA: At rest the patient was given 15.76 millicuries of technetium 99 sestamibi injected intravenously. As per protocol rest gated SPECT images were obtained. Subsequently the patient was given intravenous LexiScan at a dose of 0.4 mg in 5 mL intravenously, followed by flush with normal saline. Subsequently the stress dose of 45.9 millicuries of technetium 99 sestamibi was injected intravenously. As per protocol stress gated images were obtained. NUCLEAR INTERPRETATION: Both raw and processed data were used for interpretation. Visual, qualitative, computer-generated quantitative data was used. There was good myocardial uptake of technetium compound. Motion artifact and soft tissue attenuations were noted. Increased visceral uptake was noted. No definitive areas of transient perfusion defect noted. No definitive areas of fixed perfusion defect or scars noted. EKG gated imaging showed LV EF at 35 %, rest and stress gated EF similar visually. T. I D. ratio was 1.03. Lung heart ratio noted to be within normal limits 0.38. No significant extracardiac and abnormal radiotracer activities were noted. RV free wall uptake was noted to be []. IMPRESSION: Also refer to comments under nuclear interpretation. Also test results needs to be interpreted in the context of pretest probability. 1. There is no definitive scintigraphic evidence of LexiScan induced myocardial ischemia. 2. There is no definitive scintigraphic evidence of myocardial infarction/scar. 3. EKG gated imaging shows left ventricular ejection fraction of approximately 35 %. 4. Clinical correlation requested as occasionally single vessel disease or balanced ischemia could be missed. In approximately 10% of the cases Lexiscan may not cause adequate vasodilatory stress. RECOMMENDATIONS: Aggressive risk factor modification, medical therapy. Clinical correlation with echocardiogram derived ejection fraction. Inability to exercise by itself can lead to increased cardiovascular event risks. Consider cardiology consultation and or follow-up if clinically indicated. I AM AVAILABLE FOR CARDIOLOGY CONSULTATION AND FOLLOWUP IF REQUESTED BY PMD Kayleigh Sanchez M.D., [place] Director [employer] truss driver helper, Board certified in cardiovascular diseases, Nuclear cardiology, Echocardiography Cardiac CT and cardiac MRI Ph. [phone] [facility]
--- NOTE | 2017-06-23 13:32 | PDOC PROGRESS REPORT ---
Subjective Progress Note for:: 06/23/17 Subjective:: Patient seems to be doing better with gradual improvement. Pt is denying any chest arm or neck discomfort. Patient denying any PND, orthopnea. Patient denied any sustained palpitations, dizziness, syncope, near syncope. Patient denying any fever chills. Patient denying any other significant discomfort. Nuclear stress test procedure was explained to the patient in detail. Risks benefits were discussed and informed consent was obtained. Alternatives were discussed. Patient informed that based on risk factors, physical exam, lab data findings and symptoms there is at least intermediate probability of underlying CAD. Nuclear stress test procedure was therefore scheduled. Patient is maintaining sinus rhythm, having converted to sinus rhythm at around 10:30 AM today. Patient's cardiac enzymes has come back in the suggestive range. 2D echo results shows moderate LVH but without any other significant valvular abnormalities. Review of systems: Rest review of systems negative. Medications: Medications have been reviewed. Physical Exam Vital Signs: Temp Pulse Resp BP Pulse Ox 97.5 F 66 16 151/93 H 100 06/23/17 12:21 06/23/17 12:21 06/23/17 12:21 06/23/17 12:21 06/23/17 12:21 Intake & Output 06/22/17 06/23/17 06/24/17 06:59 06:59 06:59 Intake Total 3570 Balance 3570 Weight 136 kg Exam: GENERAL: well-nourished and in no acute distress. Alert and oriented x3 HEAD: Atraumatic, normocephalic. EYES: Pupils equal round and reactive to light, extraocular movements intact, sclera anicteric, conjunctiva are normal. ENT: TMs normal, nares patent, oropharynx clear without exudates. Moist mucous membranes. No oral ulcerations or bleeding gums noted NECK: supple without lymphadenopathy. Trachea is central. No cervical or axillary lymphadenopathy noted. Carotids are 2+, JVD WNL LUNGS: Respiration seems nonlabored, no significant accessory muscle action noted. Breath sounds clear to auscultation bilaterally and equal noted. No wheezes rales or rhonchi noted. No significant dullness noted on percussion. CHEST: Palpation of the chest wall shows no significant chest wall tenderness. No other significant abnormalities noted. HEART: [employer], No PSH, 1/6 RADHA aortic area, 1/6 sofia systolic murmur mitral area, no rubs, no gallops. ABDOMEN: Soft, no significant tenderness appreciated, normoactive bowel sounds. No guarding, no rebound. No rigidity noted . No masses appreciated. EXTREMITIES: Pedal pulses are 1-2+, no calf tenderness noted. No clubbing or cyanosis.trace to 1+ pedal edema noted NEUROLOGICAL: Focused neurological exam showed no significant neurologic deficit. Normal speech, no focal weakness appreciated. PSYCH: Normal mood, normal affect. Judgment and insight within normal limits. SKIN: No significant ecchymosis, rash, ulcerations or signs of pruritus noted. MUSCULOSKELETAL EXAM: No significant joint swelling noted. Results Laboratory Results: 06/23/17 05:10 06/23/17 05:10 06/23/17 06/23/17 05:10 05:10 WBC 8.2 RBC 4.26 L Hgb 13.1 L Hct 35.6 L MCV 84 MCH 30.7 MCHC 36.7 H RDW 13.8 Plt Count 185 Sodium 134.4 L Potassium 4.3 Chloride 108 H Carbon Dioxide 20 L Anion Gap 6 BUN 19 Creatinine 1.26 H Est GFR ( Amer) > 60 Est GFR (Non-Af Amer) > 60 Glucose 190 H Calcium 8.2 L 06/22/17 06/22/17 10:31 10:31 Creatine Kinase 574 H CK-MB (CK-2) 6.49 H Troponin I 0.213 EKG Comments: Sinus rhythm with minor nonspecific ST-T changes Impressions: Chest X-Ray 06/21/17 16:09 IMPRESSION: NO ACUTE RADIOGRAPHIC FINDING IN THE CHEST. Assessment & Plan - Diagnosis (1) New onset atrial fibrillation Is this a current diagnosis for this admission?: Yes (2) Abnormal cardiac enzyme level Is this a current diagnosis for this admission?: Yes (3) Obesity (BMI 30.0-34.9) Is this a current diagnosis for this admission?: Yes (4) Diabetes mellitus Qualifiers: Diabetes mellitus type: type 2 Diabetes mellitus complication status: without complication Is this a current diagnosis for this admission?: Yes (5) Hyperlipidemia Is this a current diagnosis for this admission?: Yes (6) Chest discomfort Is this a current diagnosis for this admission?: Yes (7) Hypertension Qualifiers: Hypertension type: essential hypertension Qualified Code(s): I10 - Essential (primary) hypertension Is this a current diagnosis for this admission?: Yes - Notes Notes: Nuclear stress results were noted to be negative. Discussed that occasionally single vessel disease could be missed. Also informed that balanced ischemia can rarely be missed. Patient was told that further evaluation will become indicated if he/she develops more symptoms indicative of ischemia or ischemia equivalent symptom. At this point however would recommend aggressive risk factor modification, medical therapy. Patient advised on risk factor modification. Atrial fibrillation: patient's chads score is 1. Patient is a borderline candidate for chronic anticoagulation. Since atrial fibrillation lasted less than 24 hours, recommend just aspirin therapy on discharge. For rate control recommend beta-blockers. Dyslipidemia: Continue with statin and fenofibrate therapy. Chest discomfort: Nuclear stress test was negative. [place] to be related to atrial fibrillation with rapid ventricular response causing increased LVEDP and chest discomfort. Patient is noted to have significant LVH. Hypertension: Recommend angiotensin receptor blockers and beta-blockers. Beta- blockers are also for rate control. Diabetes: Recommend good control of diabetes. Sleep apnea syndrome: This is strongly suspected. Patient has been advised to pursue sleep study. - Time Time with patient: Greater than 35 minutes - Patient was seen multiple times. Total time exceeds 40 minutes. In the morning nuclear stress test procedure, risks benefits, alternatives were discussed. Patient seen during the stress test. Patient also seen after stress test when results were discussed with the patient in detail. Patient's questions were answered. Nuclear stress test results were discussed with the patient. Patient was informed that no definitive evidence of pharmacologic stress-induced ischemia noted. No definite fixed defects were noted. Patient informed that occasionally significant single vessel disease or balanced ischemia could be missed. However based on the current study results, would recommend aggressive risk factor modification and medical therapy. It may also be worthwhile to consider evaluation or empiric management of other causes of chest pain. Should no other cause be found and if persistent in having chest pain, then cardiac catheterization should be considered. Right now, recommendations are for aggressive risk factor modification and medical management. CODE STATUS was discussed, patient remains full code. Surrogate decision-maker unchanged. Multiple medical problems were addressed. More than 50% of the time spent coordinating care, discussing management plans with involved caregivers. Management plans discussed with involved personnels. Medical decision making was of moderate to high complexity, patient's has multiple comorbidities. Medications reviewed and adjusted accordingly: Yes
[2017-06-23] MEDS ORDERED: REGADENOSON INJ 0.4 MG/5 ML DISP.SYRIN IV ONE (14:36)
[2017-06-23] MEDS ORDERED: AMINOPHYLLINE INJ/PF 250 MG/10 ML SDV IV ONE (14:36)
[2017-06-23 14:59] VITALS: BP 113/65
--- NOTE | 2017-06-23 15:13 | PDOC DISCHARGE SUMMARY ---
General - Admit/Disc Date/PCP Admission Date/Primary Care Provider: 06/22/17 09:44 STEFFEN KEMP, Discharge Date: 06/23/17 - Discharge Diagnosis (1) New onset atrial fibrillation Is this a current diagnosis for this admission?: YesSummary: Patient has had resolution of the H fibrillation with return of normal sinus rhythm. Patient had positive troponins most likely related to rapid ventricular rate. Normal stress test. (2) Acute renal failure Is this a current diagnosis for this admission?: YesSummary: Likely secondary to the JANIE inhibitor he was taking. Patient's JANIE inhibitor has been stopped and given IV fluids with improvement in the creatinine. Patient was started on Cozaar (3) Diabetes mellitus Is this a current diagnosis for this admission?: Yes (4) Hyperlipidemia Is this a current diagnosis for this admission?: Yes - Additional Information Resuscitation Status: Full Code Discharge Diet: Cardiac, Diabetic Discharge Activity: Activity As Tolerated, Balance Activity w/Rest, Slowly Increase Activity Home Medications: Aspirin [Aspirin 81 mg Chewable Tablet] 81 mg PO DAILY 06/21/17 Insulin Aspart [Novolog Flexpen] 10 units SQ TID 06/21/17 Insulin Glargine,Hum.rec.anlog [Toujeo Solostar] 90 units SQ QHS 06/21/17 [place]-3/Dha/Epa/Fish Oil [Fish Oil 1,000 mg Softgel] 1 each PO DAILY 06/21/17 Simvastatin [Zocor 40 mg Tablet] 40 mg PO DAILY 06/21/17 Losartan Potassium [Cozaar 50 mg Tablet] 50 mg PO DAILY #30 tablet 06/23/17 Metoprolol Succinate [Toprol Xl 25 mg Tab.sr] 25 mg PO Q12 #60 tab.sr.24h History of Present Illness History of Present Illness: KI GARCIAS is a 46 year old male has a history of diabetes mellitus and had a cardiac catheterization was normal 25 years ago who presents with new onset atrial fibrillation. He was driving from [place] where he lives to [place] and began to experience chest palpitations. He felt slightly short of breath associated with this. He initially thought it was because he drank a cold beverage. The patient continued to have symptoms in spite of drinking a warm drink and decided to come to the emergency room. He was noted to have atrial fibrillation with a rapid ventricular rate. Patient denies having any pain. He denies any dyspnea on exertion. Denies any loss of consciousness. Denies any focal weakness or paresthesias. He denies ever having history of atrial fibrillation. Patient is diabetic and reports his blood sugars have been slightly elevated over the last several days. He denies any fevers or chills or cough. He is noted to have slightly elevated creatinine but has no history of renal failure. Hospital Course Hospital Course: 46-year-old presented with palpitations and was found to have atrial fibrillation with rapid ventricular rate. Patient was started on diltiazem and had control of his heart rate. Patient was monitored overnight and was seen by cardiology. They have started the patient on Multitak and patient converted into a normal sinus rhythm. Multaq was DC'd after resumption of normal sinus rhythm. The patient did have positive troponins related to the rapid ventricular rate. Patient underwent a stress test and had no evidence for reversible ischemia. The patient is being sent home on beta blockers, aspirin, ARB. Also was noted to have an elevated creatinine when he presented. He has no history of chronic renal failure and he was on an JANIE inhibitor. JANIE inhibitor was stopped and given IV fluids overnight. Patient had improvement in the creatinine but it did not completely return to normal. He does have a history of diabetes long-term. Patient was started on Cozaar instead of his JANIE inhibitor. Physical Exam Vital Signs: Temp Pulse Resp BP Pulse Ox 97.5 F 89 16 113/65 100 06/23/17 14:47 06/23/17 14:47 06/23/17 14:47 06/23/17 14:47 06/23/17 14:47 Intake & Output 06/22/17 06/23/17 06/24/17 06:59 06:59 06:59 Intake Total 3570 Balance 3570 Weight 136 kg General appearance: PRESENT: no acute distress Eye exam: PRESENT: conjunctiva pink. ABSENT: scleral icterus Mouth exam: PRESENT: moist, tongue midline Neck exam: ABSENT: JVD Respiratory exam: PRESENT: clear to auscultation albaro. ABSENT: rales, rhonchi, wheezes Cardiovascular exam: PRESENT: RRR. ABSENT: diastolic murmur, rubs, systolic murmur Pulses: PRESENT: normal dorsalis pedis pul GI/Abdominal exam: PRESENT: normal bowel sounds, soft. ABSENT: distended, guarding, mass, organolmegaly, rebound, tenderness Extremities exam: ABSENT: calf tenderness, clubbing, pedal edema Neurological exam: PRESENT: alert, awake, oriented to person, oriented to place , oriented to time, oriented to situation, CN II-XII grossly intact. ABSENT: motor sensory deficit Psychiatric exam: PRESENT: appropriate affect, normal mood Skin exam: PRESENT: abrasion Results Laboratory Results: 06/23/17 05:10 06/23/17 05:10 06/23/17 06/23/17 05:10 05:10 WBC 8.2 RBC 4.26 L Hgb 13.1 L Hct 35.6 L MCV 84 MCH 30.7 MCHC 36.7 H RDW 13.8 Plt Count 185 Sodium 134.4 L Potassium 4.3 Chloride 108 H Carbon Dioxide 20 L Anion Gap 6 BUN 19 Creatinine 1.26 H Est GFR ( Amer) > 60 Est GFR (Non-Af Amer) > 60 Glucose 190 H Calcium 8.2 L 06/22/17 06/22/17 10:31 10:31 Creatine Kinase 574 H CK-MB (CK-2) 6.49 H Troponin I 0.213 Impressions: Chest X-Ray 06/21/17 16:09 IMPRESSION: NO ACUTE RADIOGRAPHIC FINDING IN THE CHEST. Qualifiers PATEINT BEING DISCHARGED WITH ANY OF THE FOLLOWING DIAGNOSIS?: No Plan Discharge Plan: Patient is discharged home in stable condition. Will follow with primary care doctor in 1-2 weeks. Time Spent: Greater than 30 Minutes
== END 2017-06-23 15:23 | disposition home or self-care (01) | DRG 309 ==
LOC: ER 15:55 → EH 17:43 → 3S 20:01 → OBSVTOIN 06-22 09:44
PROVIDERS: ADMIT Internal Medicine; ATTEND Internal Medicine
DX: I48.91 Unspecified atrial fibrillation (principal); N17.9 Acute kidney failure, unspecified; E10.9 Type 1 diabetes mellitus without complications; E78.5 Hyperlipidemia, unspecified; I10 Essential (primary) hypertension; K21.9 Gastro-esophageal reflux disease without esophagitis; R00.0 Tachycardia, unspecified; E66.9 Obesity, unspecified; Z68.35 Body mass index [BMI] 35.0-35.9, adult; Z79.82 Long term (current) use of aspirin; Z79.4 Long term (current) use of insulin; Z79.899 Other long term (current) drug therapy; Z88.6 Allergy status to analgesic agent; Z81.1 Family history of alcohol abuse and dependence
CPT/HCPCS: 36415; 71010; 78452; 80048; 80053; 80061; 82550; 82553; 82962; 83735; 84443; 84484; 85025; 85027; 85610; 93005; 93010; 93017; 93306; 96365; 96366; 96372; 96376; 99291; A9500; G0378; J0280; J1815; J2785; J3490; J7030; Q9969